=== PATIENT | male | born 1945 | race Caucasian/White ===

== ENCOUNTER → 2016-06-02 | Day surgery (SDC) | payer OTHER, MEDICARE ==
[~2016-06-02] VITALS: Ht 172.7 cm; Wt 90.7 kg
[~2016-06-02] MED LIST: ASPIRIN EC81 M1; CELEXA10 M1 PO; LEVOTHYROXINE25 MCG; MELOXICAM15 M1 PO; NORVASC5 M1; SIMVASTATIN10 M1; VALSARTAN80 M1
--- NOTE | 2016-06-04 11:38 | Operative Report ---
Operative/Inv Procedure Report Surgery Date: 06/02/16 Name of Procedure: Open mesh repair of umbilical hernia, incarcerated Pre-Operative Diagnosis: Incarcerated umbilical hernia Post-Operative Diagnosis: Same Estimated Blood Loss: scant Surgeon/Supervisor [employer]: ASHOK CARRENO,RODNEY FREGOSO Anesthesia: general endotracheal tube Operative/Procedure Note Note: Patient was placed on the OR table in the supine position. After successful induction of general anesthesia, another timeout was done, antibiotics given, the abdomen was clipped prepped and draped in the usual sterile fashion. An incision was planned overlying the hernia, using the upper arc of the umbilical skin, this spot was infiltrated with local anesthetic and then made with a 15 blade. This was deepened with cautery and the herniated fat and overlying sac were dissected circumferentially off the fascia, defining the true edges of the defect. It was less than a centimeter and oriented horizontally, just above this you could appreciate the slight diastases, which we noted preoperatively, we then inserted the Ventralex coated 4.3 centimeter mesh underneath the defect using the tails to center it and then closed the defect with interrupted 2-0 Maxon sutures in this case 4, incorporating the mesh with each bite. The subcutaneous layer and Cristina's fascia were reapproximated to cover. The incision was irrigated and then the skin was reapproximated with a running subcuticular 4-0 Biosyn, followed by Mastisol, Steri-Strips Telfa Tegaderm. EBL minimal lap and sponge counts correct wound expectancy clean IV fluids crystalloid complications none patient tolerated the procedure well was awakened extubated returned to the recovery room in satisfactory condition.
== END ==
LOC: STS 02:22
DX: K42.0 Umbilical hernia with obstruction, without gangrene (principal); I10 Essential (primary) hypertension; E03.9 Hypothyroidism, unspecified; M19.90 Unspecified osteoarthritis, unspecified site; Z79.82 Long term (current) use of aspirin
CPT/HCPCS: C1781; C9399; J0131; J0690; J2250

== ENCOUNTER 2017-12-07 17:54 | Inpatient (IN) | payer OTHER ==
[~2017-12-07] VITALS: Ht 172.7 cm; Wt 82.3 kg
--- NOTE | 2017-12-07 18:13 | ED GENERAL ADULT ---
History of Present Illness General Chief Complaint: Chest Pain Stated Complaint: CP THAT RADIATES TO THE BACK, X 8 HRS Source: patient Exam Limitations: no limitations Vital Signs & Intake/Output Vital Signs & Intake/Output Vital Signs Date Time Temp Pulse Resp B/P B/P Pulse O2 O2 Flow FiO2 Mean Ox Delivery Rate 12/08 0000 96 Nasal 2.0L Cannula 12/07 2258 98.0 61 20 142/80 100 12/07 2216 100 Nasal 2.0L Cannula 12/076 138/64 12/07 2030 121/64 12/07 2014 114/61 12/07 2005 54 18 114/61 100 12/07 1803 97.2 71 17 142/73 100 Room Air ED Intake and Output 12/08 0000 12/07 1200 Intake Total Output Total Balance Patient 184 lb Weight Weight Bed scale Measurement Method Allergies Coded Allergies: NO KNOWN ALLERGIES (05/28/16) Reconcile Medications Amlodipine Besylate (Norvasc) 5 MG TABLET HTN (Reported) Aspirin (Ecotrin*) 81 MG TABLET.DR BUCHANAN (Reported) Citalopram Hydrobromide (Celexa) 10 MG TABLET 3 TAB PO DAILY ANXIETY ( Reported) Levothyroxine Sodium 25 MCG TABLET HYPOTHYROID (Reported) Meloxicam 15 MG TABLET 1 TAB PO DAILY PRN PAIN (Reported) Simvastatin (Simvastatin*) 10 MG TABLET CHOLESTEROL (Reported) Valsartan 80 MG TABLET HTN (Reported) Triage Note: PT TO ED WITH C/O MIDSTERNAL CHEST PAIN DESCRIBED HEAVINESS RADIATING TO BACK THAT BEGAN THIS AM WHEN PT WOKE. DENIES DIZZINESS, NAUSEA. REPORTS PAIN WORSE WITH DEEP BREATHS. Triage Nurses Notes Reviewed? yes HPI: This is a 72-year-old male with history of hypertension, remote smoking, presented to the emergency department with a retrosternal chest pressure which started at rest this morning and is been persistent throughout the day. Discomfort radiates to the back, "between shoulder blades ". He states that his pain is slightly better when he lays flat. There is no exertional component. He denies any shortness of breath or diaphoresis or nausea. Denies any cough, abdominal pain, vomiting, diarrhea, recent illness. He has had no recent travel , trauma, other illness, history of blood clot. Prior to arrival in the emergency department he took 324 mg of aspirin. (MpHugo vaughn MD) Past History Travel History Traveled to [place] past 21 day No Medical History Any Pertinent Medical History? see below for history Cardiovascular: hypertension, HIGH CHOLESTEROL Surgical History Surgical History: non-contributory Psychosocial History What is your primary language Korean Tobacco Use: Quit >30 days ago Family History Hx Contributory? No (Hugo Gresham MD) Review of Systems Review of Systems Constitutional: Reports: no symptoms. Respiratory: Reports: no symptoms. Cardiovascular: Reports: see HPI. Musculoskeletal: Reports: no symptoms. All Other Systems: Reviewed and Negative (Hugo Gresham MD) Physical Exam Physical Exam General Appearance: well developed/nourished, no apparent distress, alert, comfortable Comments: Comfortable appearing male, no acute distress. HEENT exam is unremarkable. Patient oriented 4, neurologically intact. Cardia point exam unremarkable. Abdominal exam benign with a nontender nondistended abdomen. No pedal edema, intact pulse movement sensation all 4 extremities. Core Measures ACS in differential dx? Yes CVA/TIA Diagnosis: No Sepsis Present: No Sepsis Focused Exam Completed? No (Hugo Gresham MD) Progress Differential Diagnoses I considered the following diagnoses in my evaluation of the patient: ACS, lower suspicion for PE, thoracic aortic disease, pneumonia. Low suspicion for esophageal rupture. Could be muscular skeletal pain. Plan of Care: Orders Procedure Date/time Status Nothing by Mouth 12/08 B Active TROPONIN LEVEL 12/08 0600 Active PARTIAL THROMBOPLASTIN TIME 12/08 0600 Active CBC WITHOUT DIFFERENTIAL 12/08 0600 Active BASIC ELECTROLYTES PLUS BUN&CR 12/08 0600 Active EKG 12/08 0600 Active TROPONIN LEVEL 12/08 0055 Active EKG 12/08 0055 Active Heparin Drip- ACS 12/08 0031 Active TROPONIN LEVEL 12/07 2203 Complete EKG 12/07 2202 Active Weight 12/07 215 Active Teach/Educate 12/07 2152 Active Pain Treatment and Response 12/07 2152 Active Nutritional Intake, Monitor 12/07 2152 Active Isolation 12/07 2152 Active Patient Care Conference 12/07 2152 Active Activity/Ambulation 12/07 2152 Active ECHOCARDIOGRAM 12/07 2130 Active Pathway - chart 12/07 2129 Active Patient Data 12/07 2129 Active Telemetry/Utility Bag Assembler 12/07 2104 Active Patient Data 12/07 2046 Active Admit to inpatient 12/07 2045 Active Vital Signs 12/07 2045 Active Code Status 12/07 2045 Active TROPONIN LEVEL 12/07 203 Complete EKG 12/07 2013 Active TSH REFLEX 12/07 1855 Complete TROPONIN LEVEL 12/07 183 Complete D-DIMER 12/07 183 Complete COMPREHENSIVE METABOLIC PANEL 12/07 183 Complete CBC WITHOUT DIFFERENTIAL 12/07 183 Complete B-TYPE NATRIURETIC PEP (BNP) 12/07 183 Complete EKG 12/07 1756 Active Saline Lock 12/07 UNK Active House Staff 12/07 UNK Active Lab Add-on Test 12/07 UNK Active VTE Mechanical Prophylaxis 12/07 UNK Active Vital Signs 12/07 UNK Complete Telemetry/Utility Bag Assembler 12/07 UNK Complete Intake & Output 12/07 UNK Active Hemoccult 12/07 UNK Active Activity/Ambulation 12/07 UNK Active Current Medications Sig/Cory Start time Last Medication Dose Stop Time Status Admin Atorvastatin Calcium 10 MG 1700 12/08 1700 AC (Lipitor) Amlodipine Besylate 5 MG DAILY 12/08 09 AC (Norvasc) Aspirin Buffered 81 MG DAILY 12/08 09 AC (Ecotrin) Citalopram 30 MG DAILY 12/08 09 AC Hydrobromide (Celexa) Enoxaparin Sodium 40 MG DAILY 12/08 899 AC (Lovenox) Losartan Potassium 25 MG DAILY 12/08 899 AC (Cozaar) Levothyroxine Sodium 0.025 MG DAILY AC 12/08 0700 AC (Synthroid) Nitroglycerin 0.5 GM Q6 12/07 2359 AC 12/07 (Nitro-Bid) 2351 Heparin Sodium/ 25,000 UNIT Q24H 12/07 2330 AC 12/07 Dextrose 2351 (Heparin) Dextrose/Water 500 ML (D5W) Aspirin 325 MG ONCE ONE 12/07 2215 CAN (Aspirin) 12/08 2215 Nitroglycerin 0 .STK-MED ONE 12/07 2204 CAN (Nitrostat) Acetaminophen 650 MG Q6P PRN 12/07 2129 AC (Tylenol) Acetaminophen 1,000 MG Q6P PRN 12/07 2129 AC (Ofirmev) Morphine Sulfate 2 MG Q6P PRN 12/07 2129 AC (MORPHINE SULFATE) Laboratory Tests 12/07/17 2222: Troponin I < 0.01 12/07/17 2040: Troponin I < 0.01 12/07/17 1855: Anion Gap 7, Estimated GFR > 60, BUN/Creatinine Ratio 21.0, Glucose 93, Calcium 9.5, Total Bilirubin 0.5, AST 25, ALT 38, Alkaline Phosphatase 65, Troponin I < 0.01, Knx-H-Ipnwbfqlntg Pept 99.4, Total Protein 6.6, Albumin 4.1, Globulin 2.5, Albumin/Globulin Ratio 1.6, TSH &T3 &Free T4 Intrp 3.010, D-Dimer High Sensitivty < 200, CBC w Diff NO MAN DIFF REQ, RBC 4.19 L, MCV 98.0 H, MCH 33.3 H, MCHC 34.0, RDW 13.1, MPV 8.8, Gran % 74.1, Lymphocytes % 15.3 L, Monocytes % 8.9, Eosinophils % 1.4, Basophils % 0.3, Absolute Granulocytes 6.5, Absolute Lymphocytes 1.3, Absolute Monocytes 0.8 H, Absolute Eosinophils 0.1, Absolute Basophils 0 Plan for troponin 2, chest x-ray, d-dimer, EKG, reassessment. EKGs are nonischemic. Initial troponin is negative. Chest x-ray negative. Patient is episode of worsening retrosternal chest pain. This responds moderately well to IV morphine. Sublingual nitroglycerin seems to have minimal effect. D-dimer is negative, obviating the need for further PE workup, however given his severe retrosternal chest pain, will pursue CTA aortogram. Patient admitted to medicine service for further management, pending this study. Initial ED EKG: normal axis, normal intervals, normal p-waves, normal QRS complex, normal sinus rhythm (Hugo Gresham MD) Departure Departure Time of Disposition: 2110 Disposition: HOME OR SELF CARE Condition: Stable Clinical Impression Primary Impression: Chest pain at rest Referrals: Kade Marsh MD (PCP/Family) Departure Forms: Customer Survey General Discharge Information Admission Note Spoke With: Augustina Bradshaw MD Documentation of Exam: Documentation of any treatments & extenuating circumstances including Concerns Regarding Discharge (functional status, medication knowledge or non-compliance, living conditions, etc.) that warrant an admission rather than observation: Serial cardiac biomarkers, repeat EKG, symmetry, reassessment. (Hugo Gresham MD) PA/HEALTH CLUB ATTENDANT Co-Sign Statement Statement: ED Attending supervision documentation- x I saw and evaluated the patient. I have also reviewed all the pertinent lab results and diagnostic results. I agree with the findings and the plan of care as documented in the PA's/HEALTH CLUB ATTENDANT's documentation. I have reviewed the ED Record and agree with the PA's/HEALTH CLUB ATTENDANT's documentation. Additions or exceptions (if any) to the PAs/HEALTH CLUB ATTENDANT's note and plan are summarized below: (John CARRENO,Bakari) Critical Care Note Critical Care Note Critical Care Time: non-applicable (Mp CARRENO,Hugo)
--- NOTE | 2017-12-07 19:01 | RADIOLOGY REPORT ---
EXAMINATION: CHEST 2 VIEWS CLINICAL INFORMATION: Chest pain. COMPARISON: 07/09/2017. TECHNIQUE: PA and lateral views of the chest were obtained. FINDINGS: The cardiac silhouette is not enlarged. The mediastinal and hilar contours are unremarkable. There are neither pleural effusions nor pneumothoraces. There are no consolidations. The lungs are mildly hyperinflated. The osseous structures are stable. IMPRESSION: No evidence for acute disease.
[2017-12-07 19:06] LABS: ABSOLUTE BASOPHIL COUNT 0 /CUMM (0.0-0.2); ABSOLUTE EOSINOPHIL COUNT 0.1 /CUMM (0.0-0.7); ABSOLUTE GRANULOCYTE CT 6.5 /CUMM (1.4-6.5); ABSOLUTE LYMPH COUNT 1.3 /CUMM (1.2-3.4); ABSOLUTE MONOCYTE COUNT 0.8 /CUMM (0.10-0.60); BASOPHIL % 0.3 % (0.0-2.0); EOSINOPHIL % 1.4 % (0-5); GRANULOCYTE % 74.1 % (42.2-75.2); HEMATOCRIT 41.1 % (42-52); MEAN CORPUSCULAR HGB 33.3 PG (27.0-31.0); MEAN PLATELET VOLUME 8.8 FL (7.4-10.4); PLATELET COUNT 196 /CUMM (130-400); RBC DISTRIBUTION WIDTH 13.1 % (11.5-14.5); RED BLOOD CELL CT 4.19 /CUMM (4.70-6.10); WHITE BLOOD CELL COUNT 8.8 /CUMM (4.8-10.8)
--- NOTE | 2017-12-07 21:26 | History & Physical ---
Alhaji Suarez 12/07/172124: General Information and HPI MD Statement: I have seen and personally examined ERNESTINA SALEH and documented this H&P. The patient is a 72 year old M who presented with a patient stated chief complaint of [chest pain]. Source of Information: patient, family Exam Limitations: no limitations History of Present Illness: The patient is a 72-year-old gentleman with a past medical history significant for hypertension, hyperlipidemia, and hypothyroidism, who presented to ED with chief complaint of retrosternal chest pain with radiation to his back. This is the first time that the patient had chest pain in his life. He was relatively doing fine until this morning, and he had chest pressure "like somebody sitting on his chest" starting from this morning. The pressure was the same through the day, he thought it might be from acid reflux so he took a couple of tumies which did not help, then he took some Advil because he talked the pain could be from the muscles which did not help with the pain either. Then he told his about this issue at 5 PM she convinced him to come to [facility] emergency department. He mentions that he had "heart racing" today while he had the pressure feeling in his chest. He denies any shortness of breath during the day, diaphoresis, nausea, vomiting, cough, abdominal pain, diarrhea, constipation. While he was in ED he had 2 episodes of sharp chest pain which lasted for a couple of minutes, sublingual nitroglycerin was given which he believes made the pain worse. It happened again while the patient was in telemetry floor. At that time we were in the ED admitting another patient, but we did not receive any page, call, or overhead paging in the ED. So the general medicine team went to telemetry floor and took care of the patient. When we were in the room examining the patient, was a few minutes after the third episode of sharp chest pain that he had. He mentioned that the pain was 10 out of 10, sharp, retrosternal, and radiating to his back. We talked to Dr. Arias about this patient and he will see the patient in the morning. He mentions that the pain worsens with deep breathing, and changing position. Past medical history: Hypertension, hyperlipidemia, hypothyroidism which was diagnosed 3 years ago Social history: He quit smoking almost 30 years ago and he does not drink any alcohol, never used drugs. He is retired and he had a job at [employer] before. He is independent at home and he can do all of his daily stuff by his own. Allergies/Medications Allergies: Coded Allergies: NO KNOWN ALLERGIES (05/28/16) Home Med list Amlodipine Besylate (Norvasc) 5 MG TABLET HTN (Reported) Aspirin (Ecotrin*) 81 MG TABLET.DR BUCHANAN (Reported) Citalopram Hydrobromide (Celexa) 10 MG TABLET 3 TAB PO DAILY ANXIETY ( Reported) Levothyroxine Sodium 25 MCG TABLET HYPOTHYROID (Reported) Meloxicam 15 MG TABLET 1 TAB PO DAILY PRN PAIN (Reported) Simvastatin (Simvastatin*) 10 MG TABLET CHOLESTEROL (Reported) Valsartan 80 MG TABLET HTN (Reported) Compliance With Home Meds: GOOD Past History Travel History Traveled to [place] past 21 day No Medical History Cardiovascular: hypertension, HIGH CHOLESTEROL Surgical History Surgical History: non-contributory Review of Systems Review of Systems Constitutional: Reports: see HPI. Exam & Diagnostic Data Last 24 Hrs of Vital Signs/I&O Vital Signs Date Time Temp Pulse Resp B/P B/P Pulse O2 O2 Flow FiO2 Mean Ox Delivery Rate 12/078 98.0 61 20 142/80 100 12/07 2216 100 Nasal 2.0L Cannula 12/08 2055 138/64 12/07 2031 121/64 12/07 2014 114/61 12/07 2005 54 18 114/61 100 12/07 1803 97.2 71 17 142/73 100 Room Air Physical Exam General Appearance Alert, Oriented X3, Cooperative, Mild Distress Skin No Rashes, No Breakdown, No Significant Lesion Skin Temp/Moisture Exam: Warm/Dry Sepsis Skin Exam (color): Normal for Ethnicity HEENT Atraumatic, PERRLA, EOMI, Mucous Membr. moist/pink Neck Supple, No JVD, No thryomegaly, No LAD Cardiovascular Regular Rate, Normal S1, Normal S2, Systolic murmur 3/6 Lungs Clear to Auscultation, Normal Air Movement Abdomen Normal Bowel Sounds, Soft, No Tenderness, No Hepatospenomegaly, No Masses Neurological Normal Speech, Strength at 5/5 X4 Ext, Normal Tone, Sensation Intact, Cranial Nerves 3-12 NL, Reflexes 2+ Extremities No Clubbing, No Cyanosis, No Edema, Normal Pulses, No Tenderness/ Swelling Vascular Normal Pulses, Pulses Symmetrical Sepsis Peripheral Pulse Location: Dorsalis Pedis Sepsis Peripheral Pulse Exam: Normal Sepsis Cap Refill Exam: <2 Sec Assessment/Plan Assessment: The patient is a 72-year-old male past medical history significant for hypertension, hyperlipidemia and remote smoking who presented to ED with chest pressure from this morning and 3 episode of sharp chest pain while he was in the hospital. Chest pain rule out ACS: Unstable angina The patient had chest pressure from this morning when he woke up, he also had 3 episodes of sharp chest pain 10 out of 10, with radiation to his back which lasted for a couple of minutes. Blood pressure was the same on both upper extremities. Troponin was negative 3. EKG has shown active changes with flattening and then inversion of T waves in V1 to V3. Chest CTA has ruled out aortic dissection or pulmonary emboli. Plan: Admit to telemetry floor, serial EKG and troponin, cardiac monitoring, Plavix, IV heparin, nitroglycerin, aspirin, morphine, echo, cardiology consult ( Dr. Arias), Hypertension: He has a history of hypertension and is using amlodipine and valsartan Plan: We will monitor the blood pressure closely Hypothyroidism: This was diagnosed 3 years ago Plan: Levothyroxine The patient is full code As Ranked By This Provider Problem List: 1. Chest pain at rest 2. HTN (hypertension) 3. Hypothyroidism Core Measures/Misc (12/13) Acute Coronary Syndrome ACS Diagnosis: Yes Congestive Heart Failure Congestive Heart Failure Diagnosis No Cerebrovascular Accident CVA/TIA Diagnosis: No VTE (View Protocol) VTE Risk Factors Age>40 No Mechanical VTE Prophylaxis d/t N/A MechProphylax Ordered No VTE Pharm Prophylaxis d/t NA PharmProphylax ordered Sepsis (View protocol) Sepsis Present: No If YES complete Sepsis Event Note If YES complete Sepsis Event Note Amanda Saab 12/07/172131: Core Measures/Misc (12/13) Sepsis (View protocol) If YES complete Sepsis Event Note If YES complete Sepsis Event Note Resident Review Statement Resident Statement: examined this patient, discussed with event marketing intern, agreed with event marketing intern Other Findings: This is a 72 year old male, previous smoker, past medical history of hypertension on Norvasc and valsartan, hypothyroidism on levothyroxine, hyperlipidemia came in with chief complain of chest pain on the morning prior to presentation. He describes his chest pain to be substernal in location, pressure-like, since the morning of presentation, [id number] in intensity, he tried taking some Advil without relief, chest pain was associated with racing of the heart. In addition to above, he also described different kind of pain in addition to the pressure-like pain which was sharp in nature, 10 out of 10 while being in the emergency department, radiating to the back, he was given sublingual nitroglycerin is seen which according to him made the pain worse. He has never had any similar pain before. No major cardiac history in the past. Review of systems as mentioned above. Physical examination. He was alert orientated 3, not in any acute distress. CVS S1 and S2 present, systolic murmur, heard better inspiration. RS bilateral air entry, no adventitious sounds. Per abdomen soft, nontender. Bilateral lower extremity no clubbing cyanosis or edema. Neck no JVD. Vitals on presentation temperature of 97.0, pulse of 71, respiration of 18, blood pressure 121/64, he was saturating 100% on room air. White count of 9.8, H/H of 14.0/41.1, platelets 196. Sodium of 140, potassium of 3.9, BUN/creatinine 21/1.0, glucose of 93. D-dimer negative less than 200. Chest x-ray within normal limits. CTA demonstrated atherosclerotic disease of the coronary arteries however no acute pulmonary edema or effusion or PE was found. No acute aortic dissection was noted, there was mild atheroscleosis of the thoracic aorta. EKG showed TWI in V3 not present on previous EKG, subsequent EKG showed flattening of ST segment in v3 and nospecific changes in V4 troponins 2 set negative so far. Will admit the patient to cardiac telemetry floor We will admit the patient to telemetry 1. Unstable angina. Continue to monitor vitals, intake and output, daily weights, nitroglycerin when necessary for chest pain, aspirin, Plavix 300 mg stat, continue daily 81 mg aspirin, continue statin, obtain echocardiogram, cardiology consult, case discussed with Dr. Arias, we'll start him on IV heparin for now, continue serial EKG and troponins, as his heart rate is in 60s, will hold off beta blockers for now.keyshawn is interesting is that he said that the NG made his pain worse, one other possibility could be espohageal disorder, however he doesnot complaint of any dysphagia or similar episode before. #2 history of hypertension. Continue Norvasc 5 mg daily, continue a statin 80 mg daily. Continue to monitor blood pressure. Heart healthy diet with low sodium. #3 history of hypothyroidism. Recheck thyroid function tests. Continue levothyroxine 25 g daily. #4 history of hyperlipidemia. Continue simvastatin 10 mg daily. #5 Will check b12 and folate for macrocytosis, his h/h are normal Full code. Nothing by mouth starting at night. Dvt Px heparin Augustine CARRENO,Augustina 12/07/17 2349: Core Measures/Misc (12/13) Sepsis (View protocol) If YES complete Sepsis Event Note If YES complete Sepsis Event Note Attending MD Review Statement Attending Statement Attending MD Statement: examined this patient, discuss w/resident/PA/RETAIL PRODUCT DEMO SPECIALIST, agreed w/resident/PA/RETAIL PRODUCT DEMO SPECIALIST, reviewed EMR data (avail), discussed with nursing, discussed with case mgmt, amended to note Attending Assessment/Plan: Patient is a 72-year-old male whose risk factors for coronary artery disease include his personal history of hypertension and dyslipidemia as well as a family history of coronary artery disease in his father. He presented to the emergency room today with complaints of acute onset retrosternal pain. States that pain awoke him from sleep this morning. [place] like someone sitting on his chest. He came to the hospital for evaluation only at the behest of his at the end of the day. In the emergency room he had 2 episodes of chest pain not relieved by nitroglycerin. He had some relief with use of morphine. Describes the pain as pleuritic pain worse with deep respiration. Denies any associated cough. Denies shortness of breath. Denies similar pain in the past. 2 sets of troponins were negative in the emergency room d-dimer was negative and a CT angiogram showed no evidence of aneurysm or pulmonary embolism. He was moved to the telemetry floor for further observation when he again complained of severe retrosternal pain 10/10 in intensity worsened by deep respiration. He was hesitant to use sublingual nitroglycerin as he felt this worsened the pain in the emergency room. Nitroglycerin paste was placed with significant improvement of his pain afterwards. EKG in the ER Shows nonspecific T-wave changes in leads V2 and nonspecific ST changes in lead V3. Patient's case an EKG was discussed with the cardiology service and recommendations are to begin him on heparin infusion, Plavix loading and continue telemetry monitoring. He remains hemodynamically stable. Currently pain-free. Physical examination is unrevealing. Heart sounds are regular. No audible murmur. Abdomen is soft and nontender. No reproducible pain. No peripheral edema. No jugular venous distention. Recommendations: - repeat cardiac enzymes. Continue telemetry monitoring. - Keep n.p.o. follow-up with cardiology service in the morning for further ischemic workup modality. - Obtain echocardiogram. No pericardial effusion noted on CT scan. -Continue patient on aspirin. Please on high-dose statin therapy. Continue Nitropaste. Continue his amlodipine and losartan for blood pressure control. -Heparin infusion as recommended by the cardiology service. MCV is elevated. -Check folic acid and B12 level. Check stool guaiac. Repeat H&H in a.m. -If cardiac workup is negative-may need to consider esophageal spasm or other gastrointestinal etiology for his pain.
--- NOTE | 2017-12-07 21:49 | CT SCAN REPORT ---
EXAMINATION: CT ANGIOGRAM OF THE CHEST WITH CONTRAST (FOR AORTIC DISSECTION) CLINICAL INFORMATION: Chest pain. Possible thoracic aorta dissection. COMPARISON: Chest CT from 09/19/2010 TECHNIQUE: Noncontrast multidetector CT images of the chest were initially obtained. Subsequently, multidetector volumetric imaging was performed from the thoracic inlet to below the diaphragms during the arterial phase of administration of 95 mL Optiray 320 intravenous contrast. No contrast reaction reported. Sagittal, coronal, and MIP oblique sagittal reformatted images were obtained on the CT workstation, uploaded to PACS, and reviewed. Note that postprocessing was not performed on an independent workstation; no three-dimensional angiography images were generated. DLP: Total exam dose-length product 704 mGy-cm FINDINGS: QUALITY OF STUDY/CONTRAST BOLUS: The quality of the contrast bolus is satisfactory for evaluation of both the pulmonary arteries and thoracic aorta. PULMONARY ARTERIES: The pulmonary arteries are normal in size. No embolic filling defects are identified within the main, lobar or segmental vessels. THORACIC AORTA: Mild atherosclerosis of the thoracic aorta without intramural hematoma, aneurysm or dissection. The aortic root measures 3.3 cm diameter. At the level of the right pulmonary artery, the ascending aorta measures 3.5 cm transverse, 3.5 cm AP and at the same level, the descending aorta measures 2.7 cm transverse, 2.7 cm AP. The distal descending thoracic aorta is normal, as well, measuring 2.7 cm in short axis diameter. The great vessels arising from the top of the aortic arch are widely patent. LUNGS AND PLEURA: Trachea and central airways are widely patent and normal in caliber. Mild atelectasis in dependent aspect of each lower lobe. No pulmonary edema, consolidation, pneumothorax or pleural effusion. CARDIOVASCULAR: The heart size is normal. Moderate three-vessel atherosclerotic calcification of coronary arteries. No pericardial effusion. MEDIASTINUM: The esophagus has normal wall thickness. Within the visualized lower neck, the thyroid gland is unremarkable. No mediastinal mass. LYMPHATICS: No pathologic sized axillary, hilar or mediastinal lymph nodes. UPPER ABDOMEN: No acute findings. No reflux of contrast into the IVC. Adrenal glands are normal. Small, 0.5 cm cortical cyst of the upper pole of the left kidney. OSSEOUS STRUCTURES: Multilevel discovertebral degenerative change of the visualized lower cervical and thoracic spine. The thoracic vertebra have well preserved height and alignment. No acute fractures. IMPRESSION: - Atherosclerotic disease of coronary arteries. No acute pulmonary edema or pleural effusion. - Mild atelectasis in the lower lobes. - Mild atherosclerosis of the thoracic aorta without aneurysm or dissection. - No evidence of pulmonary embolism.
--- NOTE | 2017-12-07 22:22 | Event Note ---
Event Note Event Note: S- Rapid response was called by nursing due to patient experiencing acutely worsening chest pain B- Patient had just arrived to telemetry floor, admitted for retrosternal chest pain radiating to back A- This is possibly an acute NV R- Serial EKG's and Troponins, nitroglycerin cream, continue 2L O2 via nasal cannula, cardiology consulted by the Tele NF team
[2017-12-07 22:58] VITALS: BP 142/80
[2017-12-08 06:53] VITALS: BP 120/84
--- NOTE | 2017-12-08 07:56 | PN- Housestaff ---
[place] 12[facility]08[facility]17 0756: Subjective Follow-up For: Acute Pericarditis Tele-Events Since Last Visit: Patient remained in sinus rhythm with heart rate between 5972 Subjective: Patient remained afebrile. Seen and examined this morning. He reported that he has chest pressure and whenever he takes deep breath he has sharp pain in the chest /10. Patient denied palpitation, nausea, vomiting, chill, fever, headache, abdominal pain dysuria. Review of Systems Constitutional: Denies: chills, fever. EENTM: Reports: no symptoms. Cardiovascular: Reports: chest pain. Denies: palpitations, syncope. Respiratory: Denies: cough, short of breath, sputum production. Gastrointestinal: Denies: abdominal pain, constipation, diarrhea, nausea, vomiting. Genitourinary: Denies: discharge, frequency, hesitation. Musculoskeletal: Reports: no symptoms. Neurological/Psychological: Reports: no symptoms. Objective Last 24 Hrs of Vital Signs/I&O Vital Signs Date Time Temp Pulse Resp B/P B/P Pulse O2 O2 Flow FiO2 Mean Ox Delivery Rate 12/08 09 65 120/84 12/08 0905 65 120/84 12/08 0653 97.4 65 20 120/84 99 12/08 0000 96 Nasal 2.0L Cannula 12/07 2258 98.0 61 20 142/80 100 12/07 2216 100 Nasal 2.0L Cannula 12/076 138/64 12/07 2031 121/64 12/07 2015 114/61 12/07 2006 54 18 114/61 100 12/07 1803 97.2 71 17 142/73 100 Room Air Intake & Output 12/08 1600 12/08 0800 12/08 0000 Intake Total 280 Output Total Balance 280 Intake, IV 180 Intake, Oral 100 Patient 182 lb 184 lb Weight Weight Bed scale Measurement Method Physical Exam General Appearance: Alert, Oriented X3, Cooperative Skin Temp/Moisture Exam: Warm/Dry Sepsis Skin Exam (color): Normal for Ethnicity HEENT: Atraumatic, PERRLA, EOMI Neck: Supple Cardiovascular: Normal S1, Normal S2, Rubs Lungs: Clear to Auscultation Abdomen: Soft, No Tenderness Neurological: Normal Speech, Strength at 5/5 X4 Ext, Normal Tone Extremities: No Edema Assessment/Plan Assessment: 72 YO M with PMH hypertension, hypothyroidism and dyslipidemia as well as a family history of coronary artery disease in his father. He presented to the emergency room today with complaints of acute onset retrosternal pain. Seeing the patient on telemetry floor for following problems: Acute pericarditis: -Possibly viral etiology. -Patient presented with chest pressure and he reported that whenever he takes deep breath he has sharp retrosternal pain that is going to back. -Aortic dissection was ruled out with CTA chest that was normal. -On examination patient has pericardial rub. -His anticoagulation has been discontinued. -Continue indomethacin 25 mg 3 times daily. -We will check his CRP and then follow-up for treatment response. We will also follow his symptoms for treatment response. -His troponin remained negative for any myocarditis. -Echocardiogram follow-up for pericardial effusion -Continue aspirin -Continue omeprazole for GI prophylaxis. History of hypertension hyperlipidemia: -Continue Losartan and Lipitor -Continue amlodipine History of anxiety: -Continue Lexapro History of hypothyroidism: -Continue levothyroxine DVT prophylaxis: Mechanical subcutaneous heparin CODE STATUS: Full code Problem List: 1. Pericarditis Pain Ratin Pain Location: chest Pain Goal: Pain 4 or less Pain Plan: pain pathway Tomorrow's Labs & Rationales: bep/mag Lydia Richards MD 12/08/17 0959: Attending MD Review Statement Attending Statement Attending MD Statement: examined this patient, discuss w/resident/PA/MANAGER RETAIL SALES, agreed w/resident/PA/MANAGER RETAIL SALES, reviewed EMR data (avail), discussed with nursing, discussed with case mgmt Attending Assessment/Plan: 72-year-old male past medical history of hypertension and hyperlipidemia who came in with this severe chest pain. Today he has a pleuritic nature to the chest pain and a pronounced biphasic rub on auscultation. We spoke to cardiology who believes we are dealing with an acute pericarditis likely viral in origin. We will stop all anticoagulation, get an echocardiogram and start him on an NSAID with a PPI. Will also check a Lyme titer and follow closely.
[2017-12-08 08:00] LABS: ABSOLUTE BASOPHIL COUNT 0 /CUMM (0.0-0.2); ABSOLUTE EOSINOPHIL COUNT 0.1 /CUMM (0.0-0.7); ABSOLUTE GRANULOCYTE CT 5.5 /CUMM (1.4-6.5); ABSOLUTE LYMPH COUNT 0.9 /CUMM (1.2-3.4); ABSOLUTE MONOCYTE COUNT 0.8 /CUMM (0.10-0.60); BASOPHIL % 0.5 % (0.0-2.0); EOSINOPHIL % 0.7 % (0-5); GRANULOCYTE % 75.5 % (42.2-75.2); HEMATOCRIT 38.7 % (42-52); MEAN CORPUSCULAR HGB 33.7 PG (27.0-31.0); MEAN CORPUSCULAR HGB CONC 34.3 G/DL (33.0-37.0); MEAN CORPUSCULAR VOLUME 98.4 FL (80.0-94.0); MEAN PLATELET VOLUME 9.1 FL (7.4-10.4); PLATELET COUNT 176 /CUMM (130-400); RED BLOOD CELL CT 3.94 /CUMM (4.70-6.10); WHITE BLOOD CELL COUNT 7.3 /CUMM (4.8-10.8)
[2017-12-08 08:20] LABS: PTT 47 SEC (25-37)
--- NOTE | 2017-12-08 08:46 | Cons- Cardiology ---
General Information and HPI Consulting Request Date of Consult: 12/08/17 Requested By: Susie CARRENO,Lydia Ferro History of Present Illness: Bob is a 72 year old male with history of hypertension and dyslipidemia. He awakened from sleep yesterday and shortly thereafter noted a heaviness in his chest. He presented to the ER and received NTG and then noted a severe, sharp pain in his chest. This discomfort is exacerbated by deep inspiration and by sitting or standing up and is somewhat relieved by lying down. The discomfort is constant without any rise in cardiac enzymes. There are diffuse ST elevations on his ECG. There is no associated nausea, vomiting or diaphoresis. No significant shortness of breath, lightheadedness or palpitations. No leg swelling or discomfort in his lower extremities. At baseline, this patient is active. Allergies/Medications Allergies: Coded Allergies: NO KNOWN ALLERGIES (05/28/16) Home Med List: Amlodipine Besylate (Norvasc) 5 MG TABLET HTN (Reported) Aspirin (Ecotrin*) 81 MG TABLET.DR BUCHA[place]N (Reported) Citalopram Hydrobromide (Celexa) 10 MG TABLET 3 TAB PO DAILY ANXIETY ( Reported) Levothyroxine Sodium 25 MCG TABLET HYPOTHYROID (Reported) Meloxicam 15 MG TABLET 1 TAB PO DAILY PRN PAIN (Reported) Simvastatin (Simvastatin*) 10 MG TABLET CHOLESTEROL (Reported) Valsartan 80 MG TABLET HTN (Reported) Review of Systems Review of Systems: A review of systems is unremarkable. Past History Travel History Traveled to [place] past 21 day No Medical History Blood Transfusion Hx: No Neurological: NONE EENT: NONE Cardiovascular: hypertension, HIGH CHOLESTEROL Respiratory: obstructive sleep apnea Gastrointestinal: NONE Hepatic: NONE Renal: NONE Musculoskeletal: NONE Psychiatric: NONE Endocrine: NONE Blood Disorders: NONE Cancer(s): NONE HARP ACTION ASSEMBLER/Reproductive: NONE Surgical History Surgical History: non-contributory Psychosocial History Smoking Status: Former Smoker Exam & Diagnostic Data Vital Signs and I&O Vital Signs Date Time Temp Pulse Resp B/P B/P Pulse O2 O2 Flow FiO2 Mean Ox Delivery Rate 12/08 0653 97.4 65 20 120/84 99 12/08 0000 96 Nasal 2.0L Cannula 12/078 98.0 61 20 142/80 100 12/076 100 Nasal 2.0L Cannula 12/08 2055 138/64 12/07 2030 121/64 12/07 2014 114/61 12/07 2006 54 18 114/61 100 12/07 1803 97.2 71 17 142/73 100 Room Air Intake & Output 12/08 0000 12/07 0000 Intake Total 280 Output Total Balance 280 Intake, IV 180 Intake, Oral 100 Patient 182 lb 184 lb Weight Weight Bed scale Measurement Method Physical Exam: General: WD/WN male in NAD: alert and oriented x 3 HEENT: NC/AT, PERRL, EOMI Neck: no JVD, no carotid bruit Heart: RRR with biphasic rub Lungs: clear bilaterally Abdomen: soft, NT, +ve bowel sounds Extremities: no edema Assessment/Plan Assessment/Plan * This patient is symptoms and ECG changes consistent with pericarditis along with a pericardial friction rub. We will treat for pericarditis with Indomethacin 75mg BID. Obtain an echocardiogram. * Continue usual antihypertensive medications and statin. * Will plan on eventual stress test for risk stratification when chest pain and ECG changes improve. * Stop heparin. Consult Acknowledgment - Thank you for your consult request.
[2017-12-08 15:10] VITALS: BP 122/56
[2017-12-08] MEDS ORDERED: OMEPRAZOLE40 M1 PO (16:23)
[2017-12-08] MEDS ORDERED: INDOMETHACIN25 M1 PO (16:23)
--- NOTE | 2017-12-08 16:42 | Discharge Summary ---
Visit Information Visit Dates Admission Date: 12/07/17 Discharge Date: 12/09/17 Hospital Course Course Attending Physician: Lydia Richards MD Primary Care Physician: Kade Marsh MD. Hospital Course: 72 YO M with PMH hypertension, hypothyroidism and dyslipidemia as well as a family history of coronary artery disease in his father. He presented to the emergency room today with complaints of acute onset retrosternal pain. ED course: Vital: Temperature 97.2, pulse 71, respiratory rate 17, blood pressure 142/73, oxygen saturation 100% on room air Labs: Basic count 8.8, hemoglobin 14.0, hematocrit 41.1, platelet count 196, sodium 140, potassium 3.9, BUN 21, creatinine 1.0, anion gap 7, glucose 93, calcium 9.5, troponin less than 0.01, proBNP 99.4, albumin 4.1, AST 25, ALT 38 Acute pericarditis: Patient admitted with chest pain while taking deep breaths and on auscultation patient has pericardial rub findings consistent with acute pericarditis possibly due to viral etiology. His troponin EKG remained negative for any myopericarditis. As initially patient was complaining of pain moving towards back, his CTA chest remained negative for any aortic dissection. Echocardiogram was done that remained negative for any pericardial effusion and his LV function is within normal limits. Patient was started on indomethacin and his symptoms were relieved. Patient was instructed to continue indomethacin for 1 week and then follow cardiology as outpatient for further recommendation. Along with indomethacin patient was given omeprazole for GI prophylaxis. CRP was done and can be followed as outpatient to check the response with indomethacin. Patient' s Lyme titer is pending and patient will follow primary care physician for Lyme titer results. History of hypertension hyperlipidemia: His losartan and amlodipine for hypertension was continued. Lipitor was continued for hyperlipidemia. History of anxiety: Continued Lexapro. History of hypothyroidism: Continued levothyroxine. DVT prophylaxis: Mechanical subcutaneous heparin CODE STATUS: Full code Allergies: Coded Allergies: NO KNOWN ALLERGIES (05/28/16) Pertinent Lab Results: Chest x-ray on 12/07/2017: IMPRESSION: No evidence for acute disease. CTA chest on 12/07/2017: IMPRESSION: - Atherosclerotic disease of coronary arteries. No acute pulmonary edema or pleural effusion. - Mild atelectasis in the lower lobes. - Mild atherosclerosis of the thoracic aorta without aneurysm or dissection. - No evidence of pulmonary embolism. Disposition Summary Disposition Principal Diagnosis: Acute pericarditis Additional Diagnosis: History of hypertension hyperlipidemia History of anxiety History of hypothyroidism Discharge Disposition: home or self care Discharge Instructions General Discharge Information Code Status: Full Code Patient's Diet: Heart healthy diet Patient's Activity: Self-limited Follow-Up Instructions/Appts: Follow-up with your primary care physician in 1 week Follow-up with cardiology in 1 week. Medications at Discharge Discharge Medications: Stop taking the following medications: Meloxicam (Meloxicam) 15 MG TABLET ORAL DAILY as needed for PAIN Continue taking these medications: Citalopram Hydrobromide (Celexa) 10 MG TABLET 3 Tablet ORAL DAILY Comments: Last Taken: 12/09/17 Time: 9:00 AM Amlodipine Besylate (Norvasc) 5 MG TABLET Comments: Last Taken: 12/09/17 Time: 9:00 AM Valsartan (Valsartan) 80 MG TABLET Comments: LOSARTAN 25MG GIVEN INSTEAD Last Taken: 12/09/17 Time: 9:00 AM Simvastatin (Simvastatin*) 10 MG TABLET Comments: Last Taken: 12/08/17 Time: 4:00 PM Levothyroxine Sodium (Levothyroxine Sodium) 25 MCG TABLET Comments: Last Taken: 12/09/17 Time: 6:00 AM Aspirin (Ecotrin*) 81 MG TABLET. Comments: Last Taken: 12/09/17 Time: 9:00 AM Start taking the following new medications: Indomethacin (Indomethacin) 25 MG CAPSULE 1 Capsule ORAL THREE TIMES DAILY Qty = 18 No Refills Instructions: with food take it for 1 week and then stop Comments: Last Taken: 12/09/17 Time: 9:00 AM Omeprazole (Omeprazole) 40 MG CAPSULE.DR 1 Capsule ORAL DAILY Qty = 30 No Refills Comments: Last Taken: 12/09/17 Time: 5:00 AM Copies To: Salma CARRENO,Kade Arias MD PHD,Ever Anaya
--- NOTE | 2017-12-08 16:52 | Patient Discharge Instructions ---
Discharge Instructions General Discharge Information You were seen/treated for: Acute pericarditis Watch for these problems: Chest pain, shortness of breath, nausea, vomiting, palpitation, light headedness. If you experience any of these symptoms come to ED or call your primary care physician. If symptoms persist or comes back then come to ED. Special Instructions: Follow-up with your primary care physician in 1 week. Follow-up with your grounds maintenance worker in 1 week. Diet Recommended Diet: Heart Healthy Activity Activity Self Limited: Yes Acute Coronary Syndrome Inclusion Criteria At DC or during hospital stay patient has or had the following: ACS DIAGNOSIS No Discharge Core Measures Meds if any: Prescribed or Continued at Discharge Meds if any: NOT Prescribed or Continued at Discharge Congestive Heart Failure Inclusion Criteria At DC or during hospital stay patient has or had the following: CHF DIAGNOSIS No Discharge Core Measures Meds if any: Prescribed or Continued at Discharge Meds if any: NOT Prescribed or Continued at Discharge Cerebrovascular accident Inclusion Criteria At DC or during hospital stay patient has or had the following: CVA/TIA Diagnosis No Discharge Core Measures Meds if any: Prescribed or Continued at Discharge Meds if any: NOT Prescribed or Continued at Discharge Venous thromboembolism Inclusion Criteria VTE Diagnosis No VTE Type NONE VTE Confirmed by (Test) NONE Discharge Core Measures - Per Current guidelines, there needs to be overlap - treatment for the first 5 days of Warfarin therapy. - If discharged on Warfarin prior to 5 days of - overlap therapy, the patient will need to be - assessed for post discharge needs including - *Post discharge parental anticoagulation - *Warfarin and/or parental anticoagulation education - *Follow up date to check INR post discharge At least 5 days overlap therapy as Inpatient No Meds if any: Prescribed or Continued at Discharge Note: Overlap Therapy is Warfarin and Anticoagulant Meds if any: NOT Prescribed or Continued at Discharge
[2017-12-08 21:50] VITALS: BP 106/56
[2017-12-09 06:47] VITALS: BP 120/70
--- NOTE | 2017-12-09 07:41 | PN- Housestaff ---
[facility]: Subjective Follow-up For: Acute Pericarditis Tele-Events Since Last Visit: Patient remained in sinus rhythm with heart rate between 4853 Subjective: No overnight events. Patient remained afebrile. Patient denied chest pain, short of breath, nausea, vomiting, chill, fever, abdominal pain dysuria. Patient is feeling much improved and he denied chest pain on deep breaths. Yesterday he walked around and his feeling much improved. His echocardiogram is negative for any pericardial effusion and having normal LV function. We will discharge the patient to take indomethacin for 1 more week and he will follow cardiology as outpatient. Review of Systems Constitutional: Denies: chills, fever. EENTM: Reports: no symptoms. Cardiovascular: Denies: chest pain, orthopena, palpitations. Respiratory: Denies: cough, short of breath, sputum production. Gastrointestinal: Denies: abdominal pain, constipation, diarrhea, nausea, vomiting. Genitourinary: Reports: no symptoms. Musculoskeletal: Reports: see HPI. Neurological/Psychological: Denies: anxiety, confusion, depressed. Objective Last 24 Hrs of Vital Signs/I&O Vital Signs Date Time Temp Pulse Resp B/P B/P Pulse O2 O2 Flow FiO2 Mean Ox Delivery Rate 12/09 0647 98.3 57 20 120/70 97 Room Air 12/08 2150 98.0 48 12 106/56 97 Room Air 12/08 1510 98.4 63 18 122/56 94 Nasal Cannula 12/08 1210 99.9 12/08 0905 65 120/84 12/08 0905 65 120/84 Intake & Output 12/09 1600 12/09 0800 12/09 0000 Intake Total 200 Output Total Balance 200 Intake, Oral 200 Physical Exam General Appearance: Alert, Oriented X3, Cooperative Skin Temp/Moisture Exam: Warm/Dry Sepsis Skin Exam (color): Normal for Ethnicity HEENT: Atraumatic, PERRLA, EOMI Neck: Supple Cardiovascular: Normal S1, Normal S2, Rubs Lungs: Clear to Auscultation Abdomen: Soft, No Tenderness Neurological: Normal Speech, Strength at 5/5 X4 Ext, Normal Tone Extremities: No Edema Assessment/Plan Assessment: 72 YO M with PMH hypertension, hypothyroidism and dyslipidemia as well as a family history of coronary artery disease in his father. He presented to the emergency room today with complaints of acute onset retrosternal pain. Seeing the patient on telemetry floor for following problems: Acute pericarditis: -Possibly viral etiology. -Patient presented with chest pressure and he reported that whenever he takes deep breath he has sharp retrosternal pain that is going to back. -Aortic dissection was ruled out with CTA chest that was normal. -On examination patient has pericardial rub. -His anticoagulation has been discontinued. -Continue indomethacin 25 mg 3 times daily. We will discharge the patient on indomethacin for 1 more week. -His CRP is elevated and we will follow-up as outpatient. Patient will follow cardiology as outpatient. -Patient will follow outpatient primary care for his Lyme titer results. -His troponin remained negative for any myocarditis. -Echocardiogram remained negative for pericardial effusion and his LV function is normal. -Continue aspirin -Continue omeprazole for GI prophylaxis while patient is on indomethacin. History of hypertension hyperlipidemia: -Continue Losartan and Lipitor -Continue amlodipine History of anxiety: -Continue Lexapro History of hypothyroidism: -Continue levothyroxine DVT prophylaxis: Mechanical subcutaneous heparin CODE STATUS: Full code Problem List: 1. Pericarditis Pain Ratin Pain Location: none Pain Goal: Remain pain free Pain Plan: pain pathway Tomorrow's Labs & Rationales: none Lydia Richards MD 12/09/17 0947: Attending MD Review Statement Attending Statement Attending MD Statement: examined this patient, discuss w/resident/PA/TONE ARTIST APPRENTICE, agreed w/resident/PA/TONE ARTIST APPRENTICE, reviewed EMR data (avail), discussed with nursing, discussed with case mgmt, reviewed images Attending Assessment/Plan: Patient feels markedly better. He is tolerating the indomethacin without any issues. His echocardiogram was negative for any pericardial effusion. He has pericarditis of unclear etiology likely viral. His Lyme titer is pending. The plan is that he will leave today with a total of a week of indomethacin with a PPI with close outpatient follow-up with Dr. Arias.
--- NOTE | 2017-12-09 07:58 | ECHOCARDIOGRAM REPORT ---
ERNESTINA SALEH Age: 72 : 1945 Gender: M Exam Date: 12/08/2017 15:01 Exam Location: [address] [facility] Ht (in): 68 Wt (lb): 180 BSA: 2.00 BP: 120 / 84 Ordering Physician: Amanda Saab MD Referring Physician: Ever Arias MD, PhD Technologist: Ivanna Kay [facility] Room Number: 176 Indications: Chest pain Rhythm: Sinus Technical Quality: fair FINDINGS Left Ventricle Normal left ventricular size, wall thickness and systolic function with no obvious regional wall motion abnormalities. Normal left ventricular diastolic filling pattern for age. The ejection fraction is visually estimated at 60%. Right Ventricle The right ventricle is normal in size and function. Right Atrium The right atrium is normal in size. Left Atrium The left atrium is normal in size. The interatrial septum is intact. Mitral Valve The mitral valve is normal in structure and function. There is mild mitral regurgitation. Aortic Valve Structurally normal aortic valve without significant sclerosis or stenosis. There is no aortic regurgitation. Tricuspid Valve The tricuspid valve is normal in structure and function. There is trace tricuspid regurgitation. Pulmonary artery systolic pressure is normal. Pulmonic Valve Structurally normal pulmonic valve. There is trace pulmonic regurgitation. Pericardium Normal pericardium without effusion. No pleural effusion. Great Vessels Normal aortic root dimension. The aortic arch and great vessels are well seen and are normal. CONCLUSIONS 1. Normal EF of 60%. 2. Mild mitral regurgitation. 3. Trace tricuspid regurgitation. 4. Trace pulmonic insufficiency. Ever Arias M.D. (Electronically Signed) Final Date: 09 December 2017 07:57 MEASUREMENTS (Male / Female) Normal Values 2D ECHO LV Diastolic Diameter PLAX 4.5 cm 4.2 - 5.9 / 3.9 - 5.3 cm LV Systolic Diameter PLAX 2.4 cm 2.1 - 4.0 cm LV Fractional Shortening PLAX 46.7 % 25 - 46 % LV Ejection Fraction 2D Teich 78.2 % IVS Diastolic Thickness 1.1 cm LVPW Diastolic Thickness 1.0 cm LV Relative Wall Thickness 0.5 RV Internal Dim ED PLAX 3.8 cm 1.9 - 3.8 cm LVOT Diameter 2.1 cm Aortic Root Diameter 3.2 cm LA Systolic Diameter LX 3.6 cm 3.0 - 4.0 / 2.7 - 3.8 cm LA Volume 40.0 cm 18 - 58 / 22 - 52 cm Ascending Aorta Diameter 3.3 cm DOPPLER AV Peak Velocity 134.0 cm/s AV Peak Gradient 7.2 mmHg AV Mean Velocity 99.4 cm/s AV Mean Gradient 4.0 mmHg AV Velocity Time Integral 32.1 cm LVOT Peak Velocity 94.0 cm/s LVOT Peak Gradient 3.5 mmHg LVOT Mean Velocity 64.8 cm/s LVOT Mean Gradient 2.0 mmHg LVOT Velocity Time Integral 21.0 cm LVOT Stroke Volume 72.7 cm AV Area Cont Eq vti 2.3 cm AV Area Cont Eq pk 2.4 cm MV Peak Velocity 101.0 cm/s MV Peak Gradient 4.1 mmHg MV Mean Velocity 48.6 cm/s MV Mean Gradient 1.0 mmHg Mitral E Point Velocity 70.1 cm/s Mitral A Point Velocity 62.2 cm/s Mitral E to A Ratio 1.1 MV PHT Velocity 97.3 cm/s MV Deceleration Chaves 450.0 cm/s MV Pressure Half Time 64.9 ms MV Area PHT 3.4 cm MV Deceleration Time 338.0 ms TR Peak Velocity 239.0 cm/s TR Peak Gradient 22.8 mmHg Right Atrial Pressure 5.0 mmHg Pulmonary Artery Systolic Pressure 27.8 mmHg Right Ventricular Systolic Pressure 27.8 mmHg PV Peak Velocity 101.0 cm/s PV Peak Gradient 4.1 mmHg PV Mean Velocity 61.0 cm/s PV Mean Gradient 2.0 mmHg PV Velocity Time Integral 19.0 cm LV E' Lateral Velocity 11.8 cm/s Mitral E to LV E' Lateral Ratio 5.9 LV E' Septal Velocity 8.7 cm/s Mitral E to LV E' Septal Ratio 8.1
[2017-12-09 08:00] LABS: ABSOLUTE BASOPHIL COUNT 0 /CUMM (0.0-0.2); ABSOLUTE EOSINOPHIL COUNT 0.1 /CUMM (0.0-0.7); ABSOLUTE GRANULOCYTE CT 3.6 /CUMM (1.4-6.5); ABSOLUTE LYMPH COUNT 1.1 /CUMM (1.2-3.4); ABSOLUTE MONOCYTE COUNT 0.6 /CUMM (0.10-0.60); BASOPHIL % 0.5 % (0.0-2.0); EOSINOPHIL % 2.1 % (0-5); GRANULOCYTE % 66.4 % (42.2-75.2); HEMATOCRIT 40.7 % (42-52); MEAN CORPUSCULAR HGB 33.6 PG (27.0-31.0); MEAN CORPUSCULAR HGB CONC 34.3 G/DL (33.0-37.0); PLATELET COUNT 170 /CUMM (130-400); RBC DISTRIBUTION WIDTH 12.8 % (11.5-14.5); RED BLOOD CELL CT 4.15 /CUMM (4.70-6.10); WHITE BLOOD CELL COUNT 5.4 /CUMM (4.8-10.8)
[2017-12-09 09:35] VITALS: BP 118/64
== END 2017-12-09 09:44 | DRG 316 ==
LOC: ERH 17:54 → ERHI 20:46 → 1NO 20:46 → ENRESERV 20:57 → ENTRNSPT 21:36 → EDTRNSPTSTS 21:41 → 1NO 21:50 → CMPTRNSPT 22:15 → 1NO 12-08 07:47 → ENPENDDIS 12-09 09:53
PROVIDERS: Internal Medicine; Student in an Organized Health Care Education/Training Program
DX: I30.9 Acute pericarditis, unspecified (principal); Z87.891 Personal history of nicotine dependence; E78.5 Hyperlipidemia, unspecified; E03.9 Hypothyroidism, unspecified; I10 Essential (primary) hypertension; F41.9 Anxiety disorder, unspecified; R07.89 Other chest pain; G47.33 Obstructive sleep apnea (adult) (pediatric)
CPT/HCPCS: 1NP; 86618; 87476; 36415; 36592; 71046; 82436; 93005; 93010; 93306; 96374; J1644; J1650; J3490; J7060; Q2036